=== PATIENT | female | born 1950 | race Caucasian/White ===

== ENCOUNTER 2018-04-06 15:08 | Emergency (ER) | payer MEDICARE ==
[~2018-04-06] VITALS: Ht 160 cm; Wt 100.0 kg
[2018-04-06] MEDS ORDERED: ondansetron/PF 4mg/2ml inj IV ONE (15:30)
[2018-04-06] MEDS ORDERED: normal saline 1000ML IV soln IVB ONE (15:30)
[2018-04-06] MEDS ORDERED: morphine 4 MG/ML inj SYRINge IV PRN (15:30)
[2018-04-06 15:55] LABS: CLARITY,URINE SLIGHTLY CLOUDY (Clear); COLOR,URINE YELLOW (Yellow); GLUCOSE, URINE NEGATIVE (Neg); KETONES,URINE NEGATIVE (Neg); LEUKOCYTE ESTERASE ,URINE NEGATIVE (Neg); NITRITES, URINE NEGATIVE (Neg); OCCULT BLOOD,URINE TRACE-INTACT (Neg); PROTEIN,URINE NEGATIVE (Neg); URINE HCG NEGATIVE (NEG); UROBILINOGEN,URINE 0.2 E.U/dL (0.2-1.0)
[2018-04-06 15:59] LABS: UA COLLECTION TYPE CLN CATCH MIDSTREAM
[2018-04-06 16:00] LABS: SQUAMOUS EPITHELIAL CELL,UR MANY /LPF (FEW)
[2018-04-06 16:01] LABS: MUCUS STRANDS MANY /LPF (Neg)
[2018-04-06 16:02] LABS: BACTERIA,URINE FEW /HPF (Neg); RBC,URINE 0-2 /HPF (0-2); RENAL CELLS, URINE FEW /HPF; TRANSITIONAL EPI CELLS,URINE FEW /HPF; WBC,URINE 0-4 /HPF (0-4)
[2018-04-06] MEDS ORDERED: iohexol 300mg/ml 100ml inj. ONE (17:33)
--- NOTE | 2018-04-06 17:38 | NUR ---
LAB AT BEDSIDE, UNABLE TO GET FULL DRAW. PTT NOT DRAWN. ZOILA VIDALES NOTIFIED, HE SAID HE IS NOT INTERESTED IN PTT. ZARINA FROM [facility].
[2018-04-06 17:39] LABS: BASOPHILS # (AUTO) 0.2 X10'3 (0-0.2); BASOPHILS % (AUTO) 1.7 % (0-1); EOSINOPHILS # (AUTO) 0.1 X10'3 (0-0.9); EOSINOPHILS % (AUTO) 0.7 % (0-6); HEMATOCRIT 37.6 % (35.0-45.0); HEMOGLOBIN 12.4 g/dl (12.0-16.0); LYMPHOCYTES % (AUTO) 17.7 % (21-51); MEAN CORPUSCULAR HEMOGLOBIN 29.7 PG (27.0-31.0); MEAN CORPUSCULAR VOLUME 90.1 FL (78-98); MEAN PLATELET VOLUME 8.9 FL (7.4-10.4); MONOCYTES # (AUTO) 0.9 X10'3 (0-0.9); MONOCYTES % (AUTO) 8.2 % (2-12); NEUTROPHILS # (AUTO) 7.9 X10'3 (1.8-7.7); NEUTROPHILS % (AUTO) 71.7 % (42-75); PLATELET COUNT 358 X10'3 (140-440); RED BLOOD COUNT 4.17 X10'6 (4.20-5.60); RED CELL DISTRIBUTION WIDTH 13.4 % (11.5-14.5)
--- NOTE | 2018-04-06 17:40 | NUR ---
PT TO CT
[2018-04-06 17:47] LABS: ALANINE AMINOTRANSFERASE 47 U/L (12-78); ALBUMIN 2.7 G/DL (3.4-5.0); ALBUMIN/GLOBULIN RATIO 0.6 (1.1-1.5); ALKALINE PHOSPHATASE 151 IU/L (46-116); ANION GAP 17 (8-16); ASPARTATE AMINO TRANSFERASE 41 U/L (10-37); BILIRUBIN,TOTAL 0.3 MG/DL (0.1-1.0); BLOOD UREA NITROGEN 12 MG/DL (7-18); BUN/CREATININE RATIO 15.4 (6.6-38.0); CALCIUM 8.6 MG/DL (8.5-10.1); CHLORIDE 99 MMOL/L (99-107); CREATININE 0.78 MG/DL (0.40-0.90); GLUCOSE 73 MG/DL (70-104); SODIUM 135 MMOL/L (135-145); TOTAL CARBON DIOXIDE 19.5 MMOL/L (24-32); TOTAL PROTEIN 7.5 G/DL (6.4-8.2); eGFR 74 ML/MIN
[2018-04-06 17:51] LABS: WHITE BLOOD COUNT 10.7 X10'3 (4.5-11.0)
[2018-04-06] MEDS ORDERED: AMOX-580 PO (18:37)
[2018-04-06 18:54] VITALS: BP 139/73
== END 2018-04-06 18:56 | disposition home or self-care (01) ==
LOC: ER 15:10
DX: K57.32 Diverticulitis of large intestine without perforation or abscess without bleeding (principal); R30.0 Dysuria
CPT/HCPCS: 36415; 74176; 80053; 81001; 81025; 85025; 96361; 96374; 96375; 99284; J2270; J2405; J7030; Q9967